=== PATIENT | female | born 1945 | race Caucasian/White ===

== ENCOUNTER 2016-11-06 11:59 | Emergency (ER) | payer MEDICARE, BC ==
[2016-11-06] MEDS ORDERED: CLINDAMYCIN 900 MG/D5W RTU 50 ML IV ONE (12:50)
[2016-11-06] MEDS ORDERED: DIPH/PERTUSS(ACELL)/TETANUS VAC/PF 0.5 ML SYR (>=10YO) IM ONE (12:54)
--- NOTE | 2016-11-06 12:54 | ER Document Report ---
ED Medical Screen (RME) - General Chief Complaint: Arm Problem Stated Complaint: RIGHT HAND PAIN Time Seen by Provider: 11/06/16 12:41 Mode of Arrival: Ambulatory Information source: Patient Notes: This is a 70-year-old female sent from [facility] and returns for concern of right upper extremity cellulitis. Patient is visiting from [place]. She states that on Saturday (3 days ago) she was scratched on the dorsal right wrist by a cat. Shortly after this she spent the day at the beach and did swim in the water. The next day she noticed mild swelling and erythema to her wrist but in the past 2 days this has progressed. She was seen at [facility] and had a documented temperature of 101. Per the paperwork it appears that she received clonidine for hypertension as well as Decadron 4 mg IM and then was recommended to come to the emergency department for IV antibiotics. She denies prior history of cellulitis. I have greeted and performed a rapid initial assessment of this patient. A comprehensive ED assessment and evaluation of the patient, analysis of test results and completion of the medical decision making process will be conducted by additional ED providers. TRAVEL OUTSIDE OF THE [place] IN LAST 30 DAYS: No - Related Data Allergies/Adverse Reactions: levofloxacin [From Levaquin] Allergy (Verified 11/06/16 12:11) moxifloxacin [From Avelox] Allergy (Verified 11/06/16 12:11) Penicillins Allergy (Verified 11/06/16 12:11) Sulfa (Sulfonamide Antibiotics) Allergy (Verified 11/06/16 12:11) Past Medical History - Social History Chew tobacco use (# tins/day): No Frequency of alcohol use: Rare Drug Abuse: None - Past Medical History Cardiac Medical History: Reports: Hx Hypertension Pulmonary Medical History: Reports: Hx Asthma Renal/ Medical History: Denies: Hx Peritoneal Dialysis Past Surgical History: Reports: Hx Appendectomy, Hx Hysterectomy, Hx Orthopedic Surgery - Immunizations Hx Diphtheria, Pertussis, Tetanus Vaccination: Yes Physical Exam - Vital signs Vitals: Temp Pulse Resp BP Pulse Ox 98.2 F 90 18 166/86 H 95 11/06/16 12:11 11/06/16 12:11 11/06/16 12:11 11/06/16 12:11 11/06/16 12:11 - Notes Notes: Dorsal right hand is swollen and erythematous and warm. This erythema extends up the forearm. There is lymphangitic streaking present. Pulses intact, sensation intact. Course - Vital Signs Vital signs: Temp Pulse Resp BP Pulse Ox 98.2 F 90 18 166/86 H 95 11/06/16 12:11 11/06/16 12:11 11/06/16 12:11 11/06/16 12:11 11/06/16 12:11
[2016-11-06] MEDS ORDERED: DOXYCYCLINE HYCLATE INJ 100 MG VIAL IV ONE ×2 (13:18→13:19)
[2016-11-06 13:35] LABS: HEMATOCRIT 40.1 % (36.0-47.0); HEMOGLOBIN 12.9 g/dL (12.0-15.5); HGB HCT DIFFERENCE -1.4; MEAN CORPUSCULAR HEMOGLOBIN 28.1 pg (27.0-33.4); MEAN CORPUSCULAR HGB CONC 32.2 g/dL (32.0-36.0); MEAN CORPUSCULAR VOLUME 87 fl (80-97); RED BLOOD COUNT 4.59 10^6/uL (3.72-5.28); RED CELL DISTRIBUTION WIDTH 15.4 % (11.5-14.0); WHITE BLOOD COUNT 15.8 10^3/uL (4.0-10.5)
[2016-11-06 13:53] LABS: ALANINE AMINOTRANSFERASE 50 U/L (9-52); ALBUMIN 3.9 g/dL (3.5-5.0); ALKALINE PHOSPHATASE 78 U/L (38-126); ANION GAP 12 (5-19); ASPARTATE AMINO TRANSFERASE 27 U/L (14-36); BILIRUBIN,DIRECT 0.3 mg/dL (0.0-0.4); BLOOD UREA NITROGEN 13 mg/dL (7-20); C-REACTIVE PROTEIN 63.3 mg/L (<10.0); CALCIUM 9.4 mg/dL (8.4-10.2); CARBON DIOXIDE 23 mmol/L (22-30); CHLORIDE 105 mmol/L (98-107); CREATININE RESULT 0.85 mg/dL (0.52-1.25); GLUCOSE 146 mg/dL (75-110); POTASSIUM 3.8 mmol/L (3.6-5.0); SODIUM 140.3 mmol/L (137-145); TOTAL PROTEIN 6.7 g/dL (6.3-8.2)
[2016-11-06 14:01] LABS: ANISOCYTOSIS SLIGHT; BAND NEUTROPHILS % (MANUAL) 1 % (3-5); BASOPHILS % (MANUAL) 0 % (0-2); EOSINOPHILS % (MANUAL) 0 % (0-6); LYMPHOCYTES % (MANUAL) 2 % (13-45); TOTAL CELLS COUNTED 100; TOXIC GRANULATION 1+
--- NOTE | 2016-11-06 14:46 | ER Document Report ---
ED General - General Chief Complaint: Arm Problem Stated Complaint: RIGHT HAND PAIN Time Seen by Provider: 11/06/16 12:41 Mode of Arrival: Ambulatory TRAVEL OUTSIDE OF THE [place] IN LAST 30 DAYS: No - HPI Patient complains to provider of: Cellulitis right hand Notes: Coming in after being scratched by cat a few days prior to arrival patient has been enjoying the patient is that she is visiting from [place] hand became swollen red therefore went to urgent care was referred to the ER for IV antibiotics. Local urgent care started the patient on doxycycline and tramadol for pain control however one IV dose of antibiotics. Patient has no history of diabetes. Otherwise did have a fever of 101 and is mildly swollen. - Related Data Allergies/Adverse Reactions: levofloxacin [From Levaquin] Allergy (Verified 11/06/16 12:11) moxifloxacin [From Avelox] Allergy (Verified 11/06/16 12:11) Penicillins Allergy (Verified 11/06/16 12:11) Sulfa (Sulfonamide Antibiotics) Allergy (Verified 11/06/16 12:11) Past Medical History - General Information source: Patient - Social History Smoking Status: Never Smoker Chew tobacco use (# tins/day): No Frequency of alcohol use: Rare Drug Abuse: None Family History: Reviewed & Not Pertinent Patient has suicidal ideation: No Patient has homicidal ideation: No - Past Medical History Cardiac Medical History: Reports: Hx Hypertension Pulmonary Medical History: Reports: Hx Asthma Renal/ Medical History: Denies: Hx Peritoneal Dialysis Past Surgical History: Reports: Hx Appendectomy, Hx Hysterectomy, Hx Orthopedic Surgery - Immunizations Hx Diphtheria, Pertussis, Tetanus Vaccination: Yes Review of Systems - Review of Systems Constitutional: No symptoms reported EENT: No symptoms reported Cardiovascular: No symptoms reported Respiratory: No symptoms reported Gastrointestinal: No symptoms reported Genitourinary: No symptoms reported Female Genitourinary: No symptoms reported Musculoskeletal: No symptoms reported Skin: Other - Cellulitis Hematologic/Lymphatic: No symptoms reported Neurological/Psychological: No symptoms reported Physical Exam - Vital signs Vitals: Temp Pulse Resp BP Pulse Ox 98.2 F 90 18 166/86 H 95 11/06/16 12:11 11/06/16 12:11 11/06/16 12:11 11/06/16 12:11 11/06/16 12:11 Interpretation: Normal - General General appearance: Appears well, Alert - HEENT Head: Normocephalic, Atraumatic Eyes: Normal Pupils: PERRL - Respiratory Respiratory status: No respiratory distress Chest status: Nontender Breath sounds: Normal Chest palpation: Normal - Cardiovascular Rhythm: Regular Heart sounds: Normal auscultation Murmur: No - Abdominal Inspection: Normal Distension: No distension Bowel sounds: Normal Tenderness: Nontender Organomegaly: No organomegaly - Back Back: Normal, Nontender - Extremities General upper extremity: Nontender, Normal color, Normal ROM, Normal temperature. No: Normal inspection - Swelling of the right hand with a cellulitic process going to the MCP joints of the second third fourth fifth digit also going across the dorsum of the wrist. Patient does have pain and minimal extension of the wrist due to pain. Patient can almost make a full fist. Patient has pain with extension. And flexion can perform flexion. Laboratory showed leukocytosis. Patient was given a dose of doxycycline. The area was marked General lower extremity: Normal inspection, Nontender, Normal color, Normal ROM , Normal temperature, Normal weight bearing. No: Jayme's sign - Neurological Neuro grossly intact: Yes Cognition: Normal Orientation: AAOx4 Faith Coma Scale Eye Opening: Spontaneous [place] Coma Scale Verbal: Oriented [place] Coma Scale Motor: Obeys Commands [place] Coma Scale Total: 15 Speech: Normal Motor strength normal: LUE, RUE, LLE, RLE Sensory: Normal - Psychological Associated symptoms: Normal affect, Normal mood - Skin Skin Temperature: Warm Skin Moisture: Dry Skin Color: Normal Course - Re-evaluation Re-evalutation: 11/06/16 19:14 Patient with leukocytosis. At this time was to be more present with a process. Patient was given a dose of doxycycline encouraged follow-up if the cellulitic process continue to spread. - Vital Signs Vital signs: Temp Pulse Resp BP Pulse Ox 98.1 F 90 18 148/89 H 94 11/06/16 16:30 11/06/16 12:12 11/06/16 16:30 11/06/16 16:30 11/06/16 16:30 - Laboratory Result Diagrams: 11/06/16 13:00 11/06/16 13:00 Laboratory results interpreted by me: 11/06/16 11/06/16 13:00 13:00 WBC 15.8 H RDW 15.4 H Seg Neuts % (Manual) 91 H Band Neutrophils % 1 L Lymphocytes % (Manual) 2 L Abs Neuts (Manual) 14.5 H Abs Lymphs (Manual) 0.3 L Glucose 146 H C-Reactive Protein 63.3 H Discharge - Discharge Clinical Impression: Cellulitis Qualifiers: Site of cellulitis: unspecified site Qualified Code(s): L03.90 - Cellulitis, unspecified Condition: Good Disposition: HOME, SELF-CARE Instructions: Cellulitis ([facility]) Additional Instructions: Please take your doxycycline tonight as prescribed. YOu may take Tylenol and Motrin for pain control. If the cellulitis continues to spread or worsens please return to the ER for further evaluation Prescriptions: Doxycycline Hyclate [Vibramycin] 100 mg PO BID #20 capsule Tramadol HCl [Ultram 50 mg Tablet] 50 mg PO ASDIR PRN #20 tablet PRN Reason:
[2016-11-06 16:32] VITALS: BP 148/89
== END 2016-11-06 16:32 | disposition home or self-care (01) ==
LOC: ER 11:59
DX: L03.90 Cellulitis, unspecified (principal); I10 Essential (primary) hypertension; J45.909 Unspecified asthma, uncomplicated; Z90.710 Acquired absence of both cervix and uterus; Z88.0 Allergy status to penicillin; Z88.2 Allergy status to sulfonamides
CPT/HCPCS: 99283; 96365; 96366; 36415; 87040; 85025; 86140; 80053; J3490